=== PATIENT | female | born 1965 | race Caucasian/White ===

== ENCOUNTER → 2017-06-22 | Day surgery (SDC) | payer OTHER ==
[~2017-06-22] VITALS: Ht 165.1 cm; Wt 61.0 kg
[~2017-06-22] MED LIST: KEN25CR EXT; Sodium Chloride LOK Flush 10 mL Syringe IV PRN; fentaNYL-PF 50 mCg/mL 2 mL Inj IVPUSH PRN
[2017-06-22 07:36] VITALS: BP 129/84; PULSE 84; RESP 16; O2SAT 96
[2017-06-22] MEDS: 0.9% Sodium Chloride 1,000 ML IV SCH ×2 (08:01→08:23)
[2017-06-22 08:34] VITALS: BP 134/80; PULSE 80; O2SAT 97
[2017-06-22 08:41] VITALS: BP 111/66; PULSE 76; O2SAT 99
[2017-06-22 08:49] VITALS: BP 108/77; PULSE 72; O2SAT 97
--- NOTE | 2017-06-22 09:07 | ENDO ---
[address] [id number] ENDOSCOPY PROCEDURE PATIENT: JANET EDWARSD : 1965 MR#: [id number] ADMIT: 06/22/2017 JOB ID: [id number] DATE: 06/22/2017 PRIMARY PROVIDER: Caitie Pratt PROCEDURE: Colonoscopy. INDICATIONS: A 52-year-old female who reports for colon cancer screening. EQUIPMENT: PCF-H180AL SEDATION: 1. Versed 5 mg. 2. Fentanyl 100 mcg. COMPLICATIONS: None identified. BOWEL PREP: Excellent. PROCEDURE INFO: After the risks and benefits were explained, written and verbal informed consent was obtained. The patient was brought into the endoscopy suite and placed into the left lateral decubitus position. Sedation was achieved as above. Digital rectal examination accomplished. No pathology appreciated. The scope was introduced into the rectum and advanced to the cecum as identified by the appendiceal orifice and ileocecal valve. The scope was slowly withdrawn to carefully examine the mucosa for any defects or lesions. Retroflexed views were avoided in the rectum. Multiple direct views were made through the dentate line for exclusion of pathology. The colon was decompressed. The scope removed from the patient who tolerated the procedure well. FINDINGS: No significant polyps, mass, lesions, or inflammatory features identified throughout. ENDOSCOPIC DIAGNOSES: Visually unremarkable colonoscopy to cecum. RECOMMENDATIONS: Repeat colonoscopy in 10 years' time, sooner should symptoms warrant an earlier exam. Cc: Caitie Pratt
== END | disposition home or self-care (01) ==
LOC: END 00:14
PROVIDERS: ATTEND Internal Medicine Gastroenterology
PROC: 0DJD8ZZ Inspection of Lower Intestinal Tract, Via Natural or Artificial Opening Endoscopic (ICD-10-PCS; principal; 2017-06-22 08:00)
DX: Z12.11 Encounter for screening for malignant neoplasm of colon (principal); F17.210 Nicotine dependence, cigarettes, uncomplicated
CPT/HCPCS: G0121; G0500; J2250; J3010; J7030